=== PATIENT | female | born 2000 | race Caucasian/White ===

== ENCOUNTER 2024-06-03 07:39 | Inpatient (IN) ==
[2024-06-03] MEDS ORDERED: OXYTOCIN 30 UNITS/NSS 30 UNITS/500 ML BAG IV PRN ×2 (07:41→19:39)
[2024-06-03] MEDS ORDERED: LIDOCAINE 1% LOCAL 20 ML VIAL INFIL PRN (07:41)
[2024-06-03] MEDS ORDERED: CALCIUM CARBONATE 500 MG CHEWABLE TAB PO PRN (07:41)
--- NOTE | 2024-06-03 08:00 | History & Physical Report ---
Date of Service June 03, 2024 Assessment & Plan (1) Encounter for induction of labor: (2) Rh negative status during : Plan admit, iv, labs. start pitocin, plan arom when appropriate. fhts categ 1. rhogam eval pp. Admission and Anticipated Discharge Date Admission Date: June 03, 2024 History of Present Illness Chief Complaint: elective induction Primary Care Provider: Christiano Elam 24yo at 39+wks ega presents to LD for planned elective induction of labor. She denies complaints. No rom, no vb. +FM. No ctx. PNC c/b 1. RH neg 2. Fam hx chd--nl echo PNL rh pos, ri, gbs neg OBH: x1 GYNH: nl paps no stds Allergies Allergy/AdvReac Type Severity Reaction Status Date / Time No Known Allergies Allergy Verified 06/02/24 13:46 Home Medications Medication Instructions Recorded Confirmed Type cholecalciferol (vitamin D3) PO 10/21/23 06/02/24 History [id number] PO 10/21/23 06/02/24 History [ Plus] Patient History Medical History (Updated 06/03/24 @ 07:59 by Chrissy Diaz MD, FACOG) Varicella vaccination Surgical History (Updated 10/21/23 @ 15:34 by Michelle Pritchard, YVONNE) History of ankle surgery flat foot repair Family History (Updated 10/21/23 @ 15:29 by Michelle Pritchard, YVONNE) Mother Breast cancer Grandmother Breast cancer Ovarian cancer Uterine cancer Cervical cancer Grandfather Colorectal cancer Diabetes Uncle Diabetes Father Heart disease Father had "hole in his heart" Social History (Updated 10/21/23 @ 15:27 by Michelle Pritchard, YVONNE) Smoking Status: Never smoker Do You Dip or Chew Tobacco: No; marital status: marital status details: Nehemias Torres (27) [phone] Current Living Situation: Spouse and Family Current Living Situation Comment: Lives with and son, 1 dog and 2 cats- changes litter current occupational status: employed current occupation: [employer] Review of Systems as per Subjective / HPI Physical Exam Constitutional: WD/WN, vitals as above Respiratory: normal respiratory effort, lungs clear to auscultation Cardiovascular: Rate/Rhythm: regular rate and regular rhythm Gastrointestinal (Abdomen): soft gravid nt efw 7-8# Musculoskeletal: no edema nontender calves Neurologic: grossly normal Psychiatric: A+Ox3, euthymic affect Genitourinary: Manual OB Exam: + cervical dilation 2 cm, + cervical effacement (25%) and + station -2 OB Exam Monitor Tracing: + external FHT monitor used, + external uterine monitor used, + category I and + normal FHT variability Results & Data Vital Signs (Past 12 Hours) Vital Signs Pulse BP 06/03/24 07:44 84 120/73 Coding Level of Care Code None Diagnoses Encounter for induction of labor Z34.90 Rh negative status during O26.899; Z67.91
[2024-06-03] MEDS: OXYTOCIN 30 UNITS/NSS 30 UNITS/500 ML BAG IV PRN (08:10)
[2024-06-03 08:39] LABS: Hematocrit (blood only) 33.5 % (37.0-47.0); Hemoglobin 11.3 g/dl (12.0-16.0); Mean Corpuscular Hemoglobin 30.5 pg (25.0-34.0); Mean Corpuscular Hgb Conc 33.7 g/dL (32.0-36.0); Mean Corpuscular Volume 90.3 fL (80.0-100.0); Mean Platelet Volume 11.7 fL (9.4-12.4); Platelet Count 139 K/uL (130-400); RDW Standard Deviation 48.9 fL (36.4-46.3); Red Blood Count 3.71 M/uL (4.20-5.40); White Blood Count 7.58 K/ul (4.8-10.8)
[2024-06-03] MEDS: SODIUM CHLORIDE 0.9% 1,000 ML IV SCH (11:29)
[2024-06-03] MEDS ORDERED: fentANYL 2 MCG/ML BUPIVacaine 0.125%-NSS 100ML BAG EPI PRN (13:52)
[2024-06-03] MEDS ORDERED: ePHEDrine sulfate 50 MG/ML AMP IV PRN (13:52)
[2024-06-03] MEDS ORDERED: diphenhydrAMINE 50 MG/ML VIAL IV PRN (13:52)
[2024-06-03] MEDS ORDERED: NALBUPHINE HCL INJ 10 MG/ML AMP IV PRN (13:52)
[2024-06-03] MEDS ORDERED: fentaNYL citrate PF 100 MCG/2 ML VIAL EPI PRN (13:52)
[2024-06-03] MEDS ORDERED: BUPIVACAINE 0.25% PF 30 ML VIAL EPI PRN (13:52)
[2024-06-03] MEDS ORDERED: ROPIVACAINE 0.5% PF 5 MG/ML 20 ML VIAL EPI PRN (13:52)
[2024-06-03] MEDS ORDERED: NALOXONE HCL 1 MG in SODIUM CHLORIDE 0.9% 1,000 ML IV PRN (13:52)
[2024-06-03] MEDS ORDERED: LIDOCAINE 2% MPF LOCAL 5 ML VIAL EPI PRN (13:52)
[2024-06-03] MEDS ORDERED: SODIUM CHLORIDE 0.9% PF INJ 10 ML VIAL EPI PRN (13:52)
[2024-06-03] MEDS ORDERED: NALOXONE HCL 0.4 MG/1 ML VIAL/CARP IV PRN (13:52)
--- NOTE | 2024-06-03 13:52 | Anesthesiology Consultation ---
Date of Service June 03, 2024 Assessment & Plan Chart Review Chart Review: Acceptable Risk for Labor Epidural Consults Requested none History Height/Weight Height: 5 ft 3 in Weight: 73.482 kg Allergies Allergy/AdvReac Type Severity Reaction Status Date / Time No Known Allergies Allergy Verified 06/02/24 13:46 Medications Home Medications Medication Instructions Recorded Confirmed Last Taken cholecalciferol (vitamin D3) PO 10/21/23 06/02/24 06/02/24 22:00 [id number] PO 10/21/23 06/02/24 06/02/24 22:00 [ Plus] ferrous sulfate 325 mg (65 mg 325 mg PO DAILY 06/03/24 06/03/24 06/02/24 22:00 iron) tablet (Iron (ferrous sulfate)) Active Medications Generic Name Dose Route Start Last Admin Trade Name Freq PRN Reason Stop Dose Admin Oxytocin 30 units in 500 mls @ 5 mls/hr 06/03/24 07:41 06/03/24 12:30 Pitocin 30 Units/Nss IV 06/05/24 07:40 0.3 units/hr .Q24H PRN 5 mls/hr Labor Induction/Augmentation Titration Protocol 0.3 UNITS/HR Sodium Chloride 1,000 mls @ 80 mls/hr 06/03/24 08:15 06/03/24 11:30 Nss IV 06/04/24 08:14 80 mls/hr .[id number] NEENA Administration Past Medical History Medical History (Updated 06/03/24 @ 07:59 by Chrissy Diaz MD, FACOG) Varicella vaccination Past Family History Family History (Updated 10/21/23 @ 15:29 by Michelle Pritchard RN) Mother Breast cancer Grandmother Breast cancer Ovarian cancer Uterine cancer Cervical cancer Grandfather Colorectal cancer Diabetes Uncle Diabetes Father Heart disease Father had "hole in his heart" Past Surgical History Surgical History (Updated 10/21/23 @ 15:34 by Michelle Pritchard RN) History of ankle surgery flat foot repair Social History Smoking Status: Never smoker Do You Dip or Chew Tobacco: No Hx Alcohol Use: No Hx Substance Use: No substance use type: does not use Physical Exam Vital Signs Last Vital Signs Temp 36.7 C 06/03/24 10:00 Pulse 77 06/03/24 13:46 Resp 16 06/03/24 10:00 BP 119/79 06/03/24 13:46 Testing Laboratory Results 06/03/24 08:01
[2024-06-03] MEDS: fentANYL 2 MCG/ML BUPIVacaine 0.125%-NSS 100ML BAG ONE (14:17)
[2024-06-03] MEDS: LIDOCAINE 2%/EPINEPHRINE 1:200,000 20 ML PF ONE (14:21)
[2024-06-03] MEDS: BUPIVACAINE 0.25% PF 30 ML VIAL ONE (14:22)
[2024-06-03] MEDS: ePHEDrine sulfate 50 MG/ML AMP ONE (14:22)
[2024-06-03] MEDS: fentaNYL citrate PF 100 MCG/2 ML VIAL ONE (14:23)
[2024-06-03] MEDS: SODIUM CHLORIDE 0.9% PF INJ 10 ML VIAL ONE (14:23)
[2024-06-03] MEDS ORDERED: bisacodyL 10 MG SUPP PR PRN (19:39)
[2024-06-03] MEDS ORDERED: HYDROCORTISONE ACETATE 25 MG SUPP PR PRN (19:39)
[2024-06-03] MEDS ORDERED: BENZOCAINE 20% SPRY 85 APPLN/85 GM CAN EXT PRN (19:39)
--- NOTE | 2024-06-03 19:43 | Delivery Summary ---
Vaginal Delivery Summary Date of Service June 03, 2024 Vaginal Delivery Summary Progressed to 10 cm dilated, 100% effaced +2 station pushed over intact perineum with epidural anesthesia and delivered a viable female with weight and Apgars pending. Head of the delivered without difficulty and quickly followed by shoulders and body. was noted be vigorous soon after delivery and a 1 minute delayed cord clamping was initiated. Cord was then double clamped and cut remained on maternal abdomen. Cord blood obtained. Attention turned deliver the placenta which delivered intact with three-vessel cord gentle cord traction. Inspection of perineum vagina cervix there is noted to be a no laceration. Needle, sponge and instrument counts are correct at the completion of the case both mother and stable in the immediate post delivery timeframe. No complications noted and blood loss per QBL in chart [facility] Vaginal Delivery Charge Delivery Type Details:
[2024-06-03 19:53] VITALS: RESP 18
[2024-06-03] MEDS: fentaNYL citrate PF 100 MCG/2 ML VIAL EPI STA (20:07)
[2024-06-03] MEDS: DIPHTHER/TETAN/PERTUS Vaccine (Tdap, Adol/Adult) 0.5mL IM ONE (20:07)
[2024-06-03] MEDS: SODIUM CHLORIDE 0.9% PF INJ 10 ML VIAL EPI STA (20:07)
[2024-06-03] MEDS: LIDOCAINE 2%/EPINEPHRINE 1:200,000 20 ML PF EPI STA (20:07)
[2024-06-03] MEDS: BUPIVACAINE 0.25% PF 30 ML VIAL EPI STA (20:08)
--- NOTE | 2024-06-03 20:35 | Anesthesia Procedure Note ---
Date of Service June 03, 2024 Anesthesia Post Epidural Note Vital Signs Vital Signs: Temp Pulse Resp BP Pulse Ox 36.7 C 53 L 18 120/58 L 99 06/03/24 19:10 06/03/24 20:30 06/03/24 19:10 06/03/24 20:30 06/03/24 19:33 Pain Intensity Abdomen: Pain Intensity: 7 Notes Mental Status: alert / awake / arousable and participated in evaluation Nausea / Vomiting: adequately controlled Pain: adequately controlled Airway Patency, RR, SpO2: stable & adequate BP & HR: stable & adequate Hydration State: stable & adequate Neuraxial Anesthesia: was administered and sensory block is resolving Anesthetic Complications: no major complications apparent and Pt Satisfied with anesthetic care Epidural: Removed without complications and With tip intact
[2024-06-03] MEDS: DOCUSATE SODIUM 100 MG CAP PO SCH (21:00)
[2024-06-04] MEDS: IBUPROFEN 600 MG TAB PO PRN (02:37)
[2024-06-04 05:19] VITALS: O2SAT 99
--- NOTE | 2024-06-04 08:04 | Obstetrical Progress Note ---
Date of Service June 04, 2024 Assessment & Plan (1) (normal spontaneous vaginal delivery): Plan Both mom and baby doing well. Discharge in the evening as per protocol. Admission and Anticipated Discharge Date Admission Date: June 03, 2024 Supervising Physician Co-Signing Physician Notes Patient seen with resident and agree with the above findings and plan. Stable for discharge if preferred Subjective #1PPD following at 37 WGA No active complains Both mom and baby doing well. Pain: Mild, intermittent Lochia: Moderate Diet: Regular Ob diet Bowel Movement: not Yet Gas: Aware of passing, no abdominal distension Peeing: Normal, no bladder distension Ambulation: Normally Review of Systems Review of Systems: No SOB, chest pain, leg pain No dizziness, headache, palpitation No Blurring of vision , fever Physical Exam Physical Exam: General: Alert and oriented. No acute distress. CVS: S1 S2+ No murmurs, regular rhythm. Respiratory: CTA bilaterally. No rhonchi, wheezes, or crackles. No increased work of breathing. Abdomen: Bowel sound +. Soft, nontender Uterus: Fundus firm and palpable few cm below the umbilicus. Lower extremities: No LE edema. No deep calf pain. Results & Data Vital Signs (Past 12 Hours) Vital Signs Temp Pulse Pulse Resp BP BP Pulse Ox 06/04/24 07:10 36.2 C L 65 18 128/82 06/04/24 03:30 36.7 C 74 18 126/78 99 06/03/24 22:49 36.4 C L 65 18 122/74 98 06/03/24 21:30 36.7 C 18 06/03/24 21:25 36.7 C 79 18 132/79 100 06/03/24 21:15 79 132/79 06/03/24 21:00 36.7 C 18 06/03/24 21:00 66 142/72 H 06/03/24 20:44 60 130/70 06/03/24 20:30 36.7 C 18 06/03/24 20:30 53 L 120/58 L 06/03/24 20:15 36.7 C 18 06/03/24 20:15 65 120/66 O2 Del Method 06/04/24 07:10 Room Air 06/04/24 03:30 Room Air 06/03/24 22:49 Room Air 06/03/24 21:30 06/03/24 21:25 Room Air 06/03/24 21:15 06/03/24 21:00 06/03/24 21:00 06/03/24 20:44 06/03/24 20:30 06/03/24 20:30 06/03/24 20:15 06/03/24 20:15
[2024-06-04] MEDS: PRENATAL VITAMIN 1 TAB PO SCH (08:51)
[2024-06-04] MEDS: FERROUS SULFATE 325 MG TAB PO SCH (08:51)
[2024-06-04] MEDS: ACETAMINOPHEN 325 MG TAB PO PRN (08:54)
[2024-06-04 17:08] VITALS: BP 128/89; PULSE 64; TEMP 97.9
[2024-06-04] MEDS: bisacodyL 5 MG TABEC PO SCH (19:30)
== END 2024-06-04 20:36 | disposition home or self-care (01) | DRG 807 ==
LOC: 4S1 07:39 → 4E2 22:14